=== PATIENT | male | born 1990 | race Caucasian/White ===

== ENCOUNTER 2020-11-21 09:43 | Emergency (ER) | payer OTHER, SELFPAY ==
[2020-11-21] VITALS (8 sets, daily range): BP systolic 133–154; BP diastolic 90–122; PULSE 75–103; RESP 13–27; TEMP 36.8; O2SAT 98–100
[2020-11-21] MEDS: KETOROLAC 30 MG/ML VIAL (*BKC) IV PUSH (10:05)
[2020-11-21] MEDS: METOCLOPRAMIDE HCL INJ 10 MG/2 ML VIAL IV PUSH (10:06)
[2020-11-21] MEDS: SODIUM CHLORIDE 0.9% IV 1,000 ML 999 ML IV CONT (10:06)
[2020-11-21] MEDS: diphenhydrAMINE HCl INJ 50 MG/ML VIAL 25 MG IV PUSH (10:06)
--- NOTE | 2020-11-21 10:08 | ED.HA ---
HPI - Headache General Chief Complaint: Headache Stated Complaint: headache with vision changes Time Seen by Provider: 11/21/20 09:57 Source: patient Mode of arrival: ambulatory Limitations: no limitations History of Present Illness HPI Narrative: This is a 29 year old male that presents to the ER for headache x 2 days. Reports history of migraines. Reports he had a TBI in 2014 and has had migraines since. Reports he was on medications for this and seizures, but he no longer takes them. Reports he does medical marijuana instead. Reports he has about 3 migraines a month. This one is worse than usual. He tried to take Tylenol this morning with little relief. The headache is sharp in nature and behind the left eye. Associated with weakness. Denies fever, or stiff neck. Related Data Allergies Allergy/AdvReac Type Severity Reaction Status Date / Time meperidine [From Demerol] Allergy Unknown Verified 11/21/20 09:53 Review of Systems Review of Systems: Narrative: CONSTITUTIONAL: Denies fever EYES: Reports visual changes, and tearing ENT: Reports rhinorrhea GASTROINTESTINAL: Denies vomiting SKIN: Denies rash NEUROLOGIC: Reports headache and weakness. Denies numbness All systems reviewed & are unremarkable except as noted in HPI and below PMFSH Past Medical History Medical History (Updated 11/21/20 @ 10:42 by Antonia Tran PA-C) History of migraine History of traumatic brain injury Social History Social History (Updated 11/21/20 @ 10:14 by Antonia Tran PA-C) Smoking status: Never smoker Alcohol intake: current Substance use: current Substance use type: marijuana Exam Narrative: Exam Narrative: GENERAL: Well-appearing, well-nourished, and in no acute distress. HEAD: Normocephalic, atraumatic. EYES: PERRLA and EOMI. ENT: Nares clear, no rhinorrhea or epistaxis. Mucous membranes moist. Oropharynx without tonsillar hypertrophy exudate or other lesions. Bilateral TMs pearly meneses non-bulging NECK: Supple. No adenopathy or masses. CHEST: Clear to auscultation. No respiratory distress. No wheezes rales or rhonchi HEART: Regular rate and rhythm. No murmur heard. Normal peripheral pulses. EXTREMITIES: Normal range of motion. No edema. Strength equal in bilateral upper and lower extremities (5/5) SKIN: Warm, dry, no rash. NEURO: No focal deficits. Alert and oriented x3. Cranial nerves II through XII grossly intact. Normal evaluation PSYCH: Normal mood and affect Course Vital Signs Vital signs: Vital Signs Temperature 98.3 F 11/21/20 09:49 Pulse Rate 103 H 11/21/20 09:49 Respiratory Rate 14 11/21/20 09:49 Blood Pressure 154/93 H 11/21/20 09:49 Pulse Oximetry 100 11/21/20 09:49 Temperature 98.3 F 11/21/20 09:49 Pulse Rate 82 11/21/20 10:15 Respiratory Rate 14 11/21/20 10:15 Blood Pressure 133/90 11/21/20 10:13 Pulse Oximetry 100 11/21/20 10:15 MDM - Headache MDM Narrative Medical decision making narrative: Patient presents to the emergency department for headache. Does have history of migraines. Reports he was no longer on his migraine preventative and was using medical marijuana for this. He has not followed up with a neurologist in years. Patient is neurologically intact. His vitals are stable. CBC did show a mild leukocytosis to 13.3. Metabolic panel without concerning findings. Patient felt better after migraine cocktail and signed out AMA before any further evaluation or treatment. Did refuse a CT scan of his brain. He was instructed to return to the emergency department at any time for further evaluation and treatment Lab Data Attestation: I reviewed the patient's lab results. Result diagrams: 11/21/20 10:11 11/21/20 10:11 Labs: Lab Results 11/21/20 11/21/20 11/21/20 Range/Units 10:11 10:11 10:11 WBC 13.3 H (4.5-10.0) K/mm3 RBC 4.99 (4.6-6.20) M/mm3 Hgb 15.5 (14.0-18.0) g/dL Hct 46.1 (42.0-52.0) % MCV
[2020-11-21 10:21] LABS: Basophils Absolute Auto 0.1 K/mm3 (0.0-0.1); Basophils Percent Auto 0.4 % (0.2-1.2); Eosinophils Absolute Auto 0.1 K/mm3 (0-0.3); Eosinophils Percent Auto 0.4 % (0-4.4); Hematocrit 46.1 % (42.0-52.0); Hemoglobin 15.5 g/dL (14.0-18.0); Immature Granulocyte Absolute 0.05 K/mm3 (0.00-0.031); Immature Granulocyte Percent A 0.4 % (0-0.5); Lymphocytes Absolute Auto 2.74 K/mm3 (0.9-3.2); Lymphocytes Percent Auto 20.5 % (18.3-44.2); Mean Corpuscular HGB Conc 33.6 g/dl (32-36); Mean Corpuscular Hemoglobin 31.1 pg (26-34); Mean Corpuscular Volume 92.4 fl (80-100); Mean Platelet Volume 10.3 fl (7.4-10.4); Monocytes Absolute Auto 0.9 K/mm3 (0.1-0.6); Monocytes Percent Auto 6.6 % (2.6-8.5); Neutrophils Absolute Auto 9.6 K/mm3 (1.3-6.7); Neutrophils Percent Auto 71.7 % (45.5-73.1); Platelet Count Result 333 k/mm3 (150-375); Red Blood Count 4.99 M/mm3 (4.6-6.20); Red Cell Distribution Width 12.2 % (11.5-14.5); White Blood Count 13.3 K/mm3 (4.5-10.0)
--- NOTE | 2020-11-21 10:30 | PC.NURSE ---
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
[2020-11-21 10:32] LABS: INR 0.9; Prothrombin Time 12.7 Seconds (11.1-14.7)
[2020-11-21 10:33] LABS: Anion Gap 9 mmol/L (8-16); Blood Urea Nitrogen 11 mg/dL (9-20); Calcium 9.3 mg/dL (8.4-10.2); Carbon Dioxide 26 mmol/L (22-30); Chloride 105 mmol/L (98-107); Estimated CRCL calculation 135 ml/min; Estimated Glomerular Filt Rate > 60; Glucose 99 mg/dL (75-110); Partial Thromboplastin Time 31.5 SECONDS (22.3-36.8); Potassium 4.4 mmol/L (3.4-5.0); Sodium 140 mmol/L (137-145)
--- NOTE | 2020-11-21 10:36 | PC.NURSE ---
BRANDON reed at bedside informing pt of risks of leaving and benefits of staying.
--- NOTE | 2020-11-21 10:42 | PC.NURSE ---
BRANDON Knight out of room at this time after discussing ama with pt, pt still states that he is feeling better and wants to leave.
[2020-11-21 10:56] LABS: Erythrocyte Sedimentation Rate 26 mm/hr (0-20)
--- NOTE | 2020-11-22 13:04 | PCCCNOTE ---
Unable to complete [facility] notification. VA web portal form requires a SS# to complete submission. No SS# available on the chart.
== END 2020-11-21 10:50 | disposition left against medical advice (07) ==
PROVIDERS: Physician Assistant; Emergency Provider Emergency Medicine
DX: R51.9 Headache, unspecified (principal)
CPT/HCPCS: 36415; 80048; 85025; 85610; 85652; 85730; 96361; 96374; 96375; 99284; J1100; J1200; J1885; J2765; J7030

== ENCOUNTER → 2023-04-14 13:46 | Outpatient (CLI) | payer BC, SELFPAY ==
--- NOTE | ~2023-04-14 | XR_ITS ---
Right Knee Technique: AP, lateral, and sunrise views were obtained. Clinical History: Pain Findings: No fracture or dislocation is seen. There is apparent very small osteochondroma at the medi al aspect of the proximal tibia. Osseous alignment is anatomic. Joint spaces are preserved without de generative or erosive change. Soft tissues are unremarkable. No joint effusion is seen. Impression: No fracture or dislocation. Probable very small osteochondroma at the medial aspect of the proximal tibia. Reviewed, dictated and finalized at location M. Impression: No fracture or dislocation. Probable very small osteochondroma at the medial aspect of the proximal tibia.
== END ==
PROVIDERS: PCP Family Medicine; Visit Provider Family Medicine
DX: M25.561 Pain in right knee (principal)
CPT/HCPCS: 73564

== ENCOUNTER 2023-07-24 08:11 | Outpatient (CLI) | payer BC, SELFPAY ==
[2023-07-24 11:59] LABS: Basophils Absolute Auto 0.1 K/mm3 (0.0-0.1); Basophils Percent Auto 0.5 % (0.2-1.2); Eosinophils Absolute Auto 0.2 K/mm3 (0-0.3); Eosinophils Percent Auto 1.8 % (0-4.4); Hematocrit 47.1 % (42.0-52.0); Hemoglobin 15.3 g/dL (14.0-18.0); Immature Granulocyte Absolute 0.03 K/mm3 (0.00-0.031); Immature Granulocyte Percent A 0.3 % (0-0.5); Lymphocytes Absolute Auto 2.29 K/mm3 (0.9-3.2); Lymphocytes Percent Auto 23.8 % (18.3-44.2); Mean Corpuscular HGB Conc 32.5 g/dl (32-36); Mean Corpuscular Hemoglobin 30.5 pg (26-34); Mean Corpuscular Volume 93.8 fl (80-100); Mean Platelet Volume 10.6 fl (7.4-10.4); Monocytes Absolute Auto 0.7 K/mm3 (0.1-0.6); Neutrophils Absolute Auto 6.4 K/mm3 (1.3-6.7); Neutrophils Percent Auto 66.6 % (45.5-73.1); Platelet Count Result 280 k/mm3 (150-375); Red Blood Count 5.02 M/mm3 (4.6-6.20); Red Cell Distribution Width 12.6 % (11.5-14.5); White Blood Count 9.6 K/mm3 (4.5-10.0)
[2023-07-24 12:10] LABS: Alanine Aminotransferase 59 U/L (6-50); Albumin Level 4.3 g/dL (3.5-5.1); Alkaline Phosphatase 69 U/L (38-126); Anion Gap 4 mmol/L (8-16); Aspartate Amino Transferase 77 U/L (17-59); Bilirubin,Total 0.6 mg/dL (0.2-1.3); Blood Urea Nitrogen 10 mg/dL (9-20); Calcium 9.3 mg/dL (8.4-10.2); Carbon Dioxide 30 mmol/L (22-30); Chloride 105 mmol/L (98-107); Cholesterol 190 mg/dL (0-200); Estimated Glomerular Filt Rate > 60; Glucose 87 mg/dL (65-110); HDL Direct 30 mg/dL; Sodium 139 mmol/L (137-145); Triglycerides 114 mg/dL (<150)
[2023-07-24 12:21] LABS: LDL Cholesterol Direct 107 mg/dL
[2023-07-24 12:39] LABS: Hemoglobin A1C 5.2 % (<5.7)
== END 2023-07-24 08:12 | disposition home or self-care (01) ==
LOC: ANHGOSHLAB 08:15
PROVIDERS: PCP Family Medicine; Visit Provider Family Medicine
DX: Z13.220 Encounter for screening for lipoid disorders (principal); R73.9 Hyperglycemia, unspecified; Z13.228 Encounter for screening for other metabolic disorders; R53.83 Other fatigue
CPT/HCPCS: 36415; 80053; 80061; 83036; 85025

== ENCOUNTER 2024-04-15 13:52 | Outpatient (CLI) | payer BC, SELFPAY ==
[2024-04-15 19:30] LABS: Alanine Aminotransferase 25 U/L (6-50); Albumin Level 4.3 g/dL (3.5-5.1); Alkaline Phosphatase 69 U/L (38-126); Anion Gap 9 mmol/L (4-12); Aspartate Amino Transferase 45 U/L (17-59); Bilirubin,Total 0.5 mg/dL (0.2-1.3); Blood Urea Nitrogen 13 mg/dL (9-20); Calcium 8.7 mg/dL (8.4-10.2); Carbon Dioxide 30 mmol/L (22-30); Chloride 98 mmol/L (98-107); Estimated Glomerular Filt Rate 58; Glucose 86 mg/dL (65-110); Sodium 137 mmol/L (137-145)
[2024-04-15 20:12] LABS: Basophils Absolute Auto 0.1 K/mm3 (0.0-0.1); Basophils Percent Auto 0.4 % (0.2-1.2); Eosinophils Absolute Auto 0.2 K/mm3 (0-0.3); Eosinophils Percent Auto 1.8 % (0-4.4); Hematocrit 47.6 % (42.0-52.0); Hemoglobin 15.3 g/dL (14.0-18.0); Immature Granulocyte Absolute 0.02 K/mm3 (0.00-0.031); Immature Granulocyte Percent A 0.2 % (0-0.5); Lymphocytes Absolute Auto 2.79 K/mm3 (0.9-3.2); Lymphocytes Percent Auto 24.3 % (18.3-44.2); Mean Corpuscular HGB Conc 32.1 g/dl (32-36); Mean Corpuscular Hemoglobin 30.4 pg (26-34); Mean Corpuscular Volume 94.4 fl (80-100); Mean Platelet Volume 10.9 fl (7.4-10.4); Monocytes Absolute Auto 0.9 K/mm3 (0.1-0.6); Monocytes Percent Auto 7.6 % (2.6-8.5); Neutrophils Absolute Auto 7.5 K/mm3 (1.3-6.7); Neutrophils Percent Auto 65.7 % (45.5-73.1); Platelet Count Result 311 k/mm3 (150-375); Red Blood Count 5.04 M/mm3 (4.6-6.20); Red Cell Distribution Width 12.5 % (11.5-14.5); White Blood Count 11.5 K/mm3 (4.5-10.0)
== END 2024-04-15 13:53 | disposition home or self-care (01) ==
LOC: ANHGOSHLAB 13:54
PROVIDERS: PCP Family Medicine; Visit Provider Family Medicine
DX: R53.83 Other fatigue (principal); Z13.228 Encounter for screening for other metabolic disorders
CPT/HCPCS: 36415; 80053; 85025